=== PATIENT | female | born 1960 | race Caucasian/White ===

== ENCOUNTER → 2016-08-27 | Outpatient (CLI) | payer OTHER | LOC: FIMAGING 11:37 | PROVIDERS: ATTEND Internal Medicine Hematology & Oncology | DX: Z12.39 Encounter for other screening for malignant neoplasm of breast (principal); N64.4 Mastodynia; Z85.3 Personal history of malignant neoplasm of breast | CPT/HCPCS: G0204; G0279 ==

== ENCOUNTER → 2017-02-01 | Outpatient (CLI) | payer OTHER | LOC: FIMAGING 12:55 | PROVIDERS: ATTEND Internal Medicine Hematology & Oncology | DX: Z03.89 Encounter for observation for other suspected diseases and conditions ruled out (principal) | CPT/HCPCS: G0206 ==

== ENCOUNTER → 2017-10-24 | Outpatient (CLI) | payer OTHER ==
[~2017-10-24] MED LIST: IOPAMIDOL (ISOVUE-300) 100 ML BTL ONE
== END ==
LOC: FIMAGING 15:20
PROVIDERS: ATTEND Internal Medicine
DX: N20.0 Calculus of kidney (principal); Z85.3 Personal history of malignant neoplasm of breast
CPT/HCPCS: Q9967

== ENCOUNTER → 2017-12-05 | Outpatient (CLI) | payer OTHER | LOC: FIMAGING 10:20 | PROVIDERS: ATTEND Internal Medicine Hematology & Oncology | DX: Z12.31 Encounter for screening mammogram for malignant neoplasm of breast (principal); Z85.3 Personal history of malignant neoplasm of breast; Z80.3 Family history of malignant neoplasm of breast ==

== ENCOUNTER → 2017-12-06 | Outpatient (CLI) | payer OTHER ==
[~2017-12-06] MED LIST changes: -IOPAMIDOL (ISOVUE-300) 100 ML BTL ONE; +IOPAMIDOL (ISOVUE-300) 150 ML BTL ONE
== END ==
LOC: FIMAGING 10:17
PROVIDERS: ATTEND Physician Assistant Medical
DX: N20.0 Calculus of kidney (principal)
CPT/HCPCS: Q9967

== ENCOUNTER → 2017-12-24 | Outpatient (CLI) | payer OTHER | LOC: FIMAGING 10:39 | PROVIDERS: ATTEND Specialist | DX: N20.0 Calculus of kidney (principal) ==

== ENCOUNTER → 2017-12-25 | Outpatient (CLI) | payer OTHER | LOC: FIMAGING 10:47 | PROVIDERS: ATTEND Internal Medicine Hematology & Oncology | DX: M85.89 Other specified disorders of bone density and structure, multiple sites (principal); N95.8 Other specified menopausal and perimenopausal disorders ==

== ENCOUNTER → 2018-02-03 | Outpatient (CLI) | payer OTHER | LOC: FIMAGING 09:21 | PROVIDERS: ATTEND Specialist | DX: N20.0 Calculus of kidney (principal) ==

== ENCOUNTER → 2018-06-09 | Outpatient (CLI) | payer OTHER | LOC: FIMAGING 09:52 | PROVIDERS: ATTEND Orthopaedic Surgery | DX: Z01.818 Encounter for other preprocedural examination (principal); M17.11 Unilateral primary osteoarthritis, right knee ==

== ENCOUNTER 2018-06-18 08:56 | Observation (INO) | payer OTHER ==
--- NOTE | 2018-06-18 06:42 | PDHPUP ---
History & Physical Update H&P update statement: This history and physical update is based on an assessment of the patient which was completed after admission or registration (within 24 hours), but prior to the surgery/procedure. H&P update: H&P reviewed & patient examined, no change in patient's condition since H&P completed
[~2018-06-18 08:56] MED LIST changes: -IOPAMIDOL (ISOVUE-300) 150 ML BTL ONE; +ROPIVACAINE 0.2% 80 MG, EPINEPHrine 0.2 MG, KETOROLAC TROMETHAMINE 30 MG in SYRINGE 0 ML IU ONE; +TRANEXAMIC ACID 3,000 MG in NS (SYRINGE) 50 ML IRR ONE; +TRANEXAMIC ACID 3,000 MG/50 ML BAG IRR ONE; +VANCOMYCIN 1 GM VIAL ONE
[2018-06-18] MEDS ORDERED: FAMOTIDINE 20 MG TAB PO ONE (09:03)
[2018-06-18] MEDS ORDERED: ACETAMINOPHEN 325 MG TAB PO ONE (09:03)
[2018-06-18] MEDS ORDERED: DEXAMETHASONE 4 MG/ML VIAL IVP ONE (09:03)
[2018-06-18] MEDS ORDERED: ceFAZolin 2 GM/DEXTROSE 100 ML IV ONE (09:03)
[2018-06-18] MEDS ORDERED: LR 1,000 ML IV ONE (09:05)
[2018-06-18] MEDS ORDERED: PROPOFOL/EMULSION 500 MG/50 ML BOTTLE IV ONE (09:59)
[2018-06-18] MEDS ORDERED: LIDOCAINE 2% 5 ML SDV ONE (10:01)
[2018-06-18] MEDS ORDERED: BUPIVACAINE/DEXTROSE 7.5MG/ML 2 ML SPINAL AMP SP ONE (10:53)
[2018-06-18] MEDS ORDERED: MIDAZOLAM 2 MG/2 ML VIAL IVP ONE (10:54)
[2018-06-18] MEDS ORDERED: MIDAZOLAM 2 MG/2 ML VIAL ONE (11:01)
--- NOTE | 2018-06-18 11:03 | PDANEPAE ---
ANE History of Present Illness right knee OA ANE Past Medical History - Cardiovascular History Hx Hypertension: No Hx Arrhythmias: Yes Hx Chest Pain: No Hx Coronary Artery / Peripheral Vascular Disease: No Hx CHF / Valvular Disease: No Hx Palpitations: No Cardiovascular History Comment: SVT-last episode 2009. Cardizem until 02/17. No problems since then. - Pulmonary History Hx COPD: No Hx Asthma/Reactive Airway Disease: No Hx Recent Upper Respiratory Infection: Yes Hx Oxygen in Use at Home: No Hx Sleep Apnea: No Sleep Apnea Screening Result - Last Documented: Positive Pulmonary History Comment: RECENT URI RESOLVING NO MEDICATIONS REQUIRED - Neurologic History Hx Cerebrovascular Accident: No Hx Seizures: No Hx Dementia: No Neurologic History Comment: carpal tunnel both hands-numbness - Endocrine History Hx Diabetes: No Obesity: yes, moderate Endocrine History Comment: none - Renal History Hx Renal Disorders: Yes Renal History Comment: LITHOTRIPSY 12/2017 - Liver History Hx Hepatic Disorders: No - Neurological & Psychiatric Hx Hx Neurological and Psychiatric Disorders: No Neurological / Psychiatric History Comment: Wellbutrin for menopause - Cancer History Hx Cancer: Yes Cancer History Comment: R breast - Congenital Disorder History Hx Congenital Disorders: No - GI History Hx Gastrointestinal Disorders: Yes Gastrointestinal History Comment: hiatal hernia-occ heartburn - Other Health History Other Health History: OSTEOARTHRITIS. skin rash adhesive tape. bruising easily - Chronic Pain History Chronic Pain: Yes (RT KNEE) - Surgical History Prior Surgeries: LITHOTRIPSY 12/30/17. SINUS LIFT/BONE GRAFT PRIOR TO DENTAL IMPLANT. LACY CARPAL TUNNEL 2014. RT BREAST LUMPECTOMY ANE Review of Systems Review of Systems: - Exercise capacity METS (RN): 4 METS ANE Patient History - Allergies Allergies/Adverse Reactions: lanolin Allergy (Intermediate, Verified 10/27/13 08:38) Rash adhesive Allergy (Verified 10/08/13 11:18) amoxicillin [Amoxicillin] Allergy (Verified 06/03/18 11:40) Hives/Joint Pain Sulfa (Sulfonamide Antibiotics) Allergy (Verified 06/03/18 11:40) Hives - Home Medications Home medications: home medication list seen and reviewed Home Medications: Aspirin [Aspirin 81mg (*)] 81 mg PO DAILY 06/03/18 [Last Taken 1 Week Ago ~06/11] Cetirizine [ZyrTEC 10 mg (*)] 10 mg PO DAILY 06/03/18 [Last Taken 06/18/18 07:00 ] Exemestane [Aromasin 25 MG (RX)] 25 mg PO DAILY8 06/03/18 [Last Taken 06/16/18] Fluticasone Nasal [Flonase Nasal [place] (RX)] 1 sprays NASAL DAILY 06/03/18 [ Last Taken 06/18/18 07:30] Herbals/Supplements -Info Only 1 ea PO DAILY 06/03/18 [Last Taken 1 Week Ago ~] Ibuprofen [Motrin (*)] 400 - 600 mg PO BID PRN 06/03/18 [Last Taken 1 Week Ago ~ 06/11/18] Tetrahydrozoline 0.05% [Visine (*)] 1 drop EACHEYE DAILY PRN 06/03/18 [Last Taken 06/18/18 07:00] - NPO status NPO Since - Liquids (Date): 06/18/18 NPO Since - Liquids (Time): 06:30 NPO Since - Solids (Date): 06/17/18 NPO Since - Solids (Time): 20:00 - Anes Hx Anes Hx: no prior problems - Smoking Hx Smoking Status: Never smoked - Family Anes Hx Family Hx Anesthesia Complications: no ANE Labs/Vital Signs - Vital Signs Blood Pressure: 123/77 Heart Rate: 77 Respiratory Rate: 18 O2 Sat (%): 94 Height: 162.56 cm Weight: 86.183 kg ANE Physical Exam - Airway Neck exam: FROM Mallampati Score: Class 2 Mouth exam: poor dentition - Pulmonary Pulmonary: no respiratory distress - Cardiovascular Cardiovascular: regular rate and rhythym - ASA Status ASA Status: II ANE Anesthesia Plan Anesthesia Plan: spinal Regional Anesthesia: single shot NB, adductor canal FNB
[2018-06-18] MEDS ORDERED: oxyCODONE IR 5 MG TAB PO PRN (11:33)
[2018-06-18] MEDS ORDERED: LR 500 ML IV PRN (11:33)
[2018-06-18] MEDS ORDERED: HYDROmorphONE/DILAUDID 2 MG/ML INJ IVP PRN (11:33)
[2018-06-18] MEDS ORDERED: NALOXONE HCL 0.4 MG/ML INJ IVP PRN (11:33)
[2018-06-18] MEDS ORDERED: HYDROCODONE/APAP 5/325 TAB PO PRN (11:33)
[2018-06-18] MEDS ORDERED: fentaNYL 100 MCG/2 ML INJ IVP PRN (11:33)
[2018-06-18] MEDS ORDERED: ONDANSETRON 4 MG/2 ML VIAL IVP PRN ×2 (11:33→12:24)
[2018-06-18] MEDS ORDERED: ALBUTEROL 3 ML DEYVIAL IH PRN (11:33)
[2018-06-18] MEDS ORDERED: ACETAMINOPHEN 500 MG TAB PO PRN (11:33)
--- NOTE | 2018-06-18 11:33 | POSTANESTH ---
Post Anesthetic Evaluation Cardiovascular Status: Normal, Stable Respiratory Status: Normal, Stable Level of Consciousness/Mental Status: Can Participate in Eval, Mildly Sleepy, Arousable Pain Control: Adequate, Prn Tx Ordered Nausea/Vomiting Control: Adequate, Prn Tx Ordered Complications Possibly Related to Anesthesia: None Noted
[2018-06-18] MEDS ORDERED: ROPIVACAINE HCL 150 MG/30 ML INJ ONE (11:45)
[2018-06-18] MEDS ORDERED: PROPOFOL 200 MG/20 ML VIAL ONE (11:52)
--- NOTE | 2018-06-18 12:22 | POSTOPPROG ---
Post Op Note Date of Operation: 06/18/18 Surgeon: Urszula Skinner Hvac Field Service Technician: Valerie Skinner PA-C Anesthesiologist: Dr. Moreno Anesthesia: Spinal, Other (Specify) (Adductor canal block) Pre-op Diagnosis: right knee OA Post-op Diagnosis: same Indication: right medial knee pain Procedure: Right medial partial knee arthroplasty Findings: severe medial knee OA Inf/Abcess present in the surg proc area at time of surgery?: No EBL: 50-100
[2018-06-18] MEDS ORDERED: DIPHENOXYLATE/ATROPINE LOMOTIL 1 TAB PO PRN (12:24)
[2018-06-18] MEDS ORDERED: PROMETHAZINE HCL 25 MG/ML INJ IVP PRN (12:24)
[2018-06-18] MEDS ORDERED: BISACODYL 10 MG SUPP PR PRN (12:24)
[2018-06-18] MEDS ORDERED: PROMETHAZINE HCL 25 MG SUPPR PR PRN (12:24)
[2018-06-18] MEDS ORDERED: ONDANSETRON DISINTEGRATING 4 MG TAB PO PRN (12:24)
[2018-06-18] MEDS ORDERED: MAGNESIUM HYDROXIDE 30 ML UDCUP PO PRN (12:24)
[2018-06-18] MEDS ORDERED: LACTULOSE 20 GM/30 ML UDCUP PO PRN (12:24)
[2018-06-18] MEDS ORDERED: diphenhydrAMINE 25 MG CAP PO PRN (12:24)
[2018-06-18] MEDS ORDERED: POLYETHYLENE GLYCOL 3350 17 GM PKT PO PRN (12:24)
[2018-06-18] MEDS ORDERED: METOCLOPRAMIDE 10 MG/2 ML VIAL IVP PRN (12:24)
[2018-06-18] MEDS ORDERED: CYCLOBENZAPRINE 10 MG TAB PO PRN (12:24)
[2018-06-18] MEDS ORDERED: LR 1,000 ML IV SCH (12:30)
[2018-06-18] MEDS ORDERED: TETRAHYDROZOLINE 0.05% 15 ML OPHT.BTL EACHEYE PRN ×2 (13:00)
[2018-06-18] MEDS: ACETAMINOPHEN 325 MG TAB PO SCH (18:28)
[2018-06-18] MEDS: ceFAZolin 2 GM/DEXTROSE 100 ML IV SCH (18:29)
[2018-06-18] MEDS: FAMOTIDINE 20 MG TAB PO SCH (21:53)
[2018-06-18] MEDS: ASPIRIN 81 MG CHEWABLE TAB PO SCH (21:53)
[2018-06-18] MEDS: SENNOSIDES/DOCUSATE SODIUM TAB PO SCH (21:54)
[2018-06-18] MEDS: oxyCODONE IR 5 MG TAB PO PRN (21:57)
[2018-06-18] MEDS: TEMAZEPAM 15 MG CAP PO PRN (21:57)
[2018-06-19] MEDS: ACETAMINOPHEN 325 MG TAB PO SCH ×2 (00:40→06:21)
[2018-06-19] MEDS: ceFAZolin 2 GM/DEXTROSE 100 ML IV SCH (02:21)
[2018-06-19] MEDS: TEMAZEPAM 15 MG CAP PO PRN (02:44)
[2018-06-19] MEDS ORDERED: EXEMESTANE 25 MG TAB PO SCH (08:00)
[2018-06-19] MEDS: oxyCODONE IR 5 MG TAB PO PRN (08:09)
[2018-06-19] MEDS: FAMOTIDINE 20 MG TAB PO SCH (08:11)
[2018-06-19] MEDS: ASPIRIN 81 MG CHEWABLE TAB PO SCH (08:12)
[2018-06-19] MEDS: SENNOSIDES/DOCUSATE SODIUM TAB PO SCH (08:12)
--- NOTE | 2018-06-19 08:46 | SOAPPROG ---
SOAP Progress Note Assessment/Plan: Assessment: Patient is doing well POD 1 s/p R medial PKA Pain management: pain is well controlled on oral pain meds. VTE ppx: recommend aspirin 81 mg BID for 4 weeks, cont OSMANI and SCDs Anemia: level is expected initially postop. Asymptomatic. Continue to monitor D/c planning: Patient has done better than anticipated and would like to be discharged to home today. Patient must be released from PT before discharge to home. postop urinary retention: straight cath'd yesterday, resolved today. Plan: 06/19/18 08:44 Subjective: Arcelia is doing well today, denies SOB, chest pain and n/v Objective: Vital Signs Temp Pulse Resp BP Pulse Ox 36.4 C 73 16 128/76 H 100 06/19/18 07:34 06/19/18 07:34 06/19/18 07:34 06/19/18 07:34 06/19/18 07:34 Laboratory Results 06/19/18 05:00 06/18/18 06/19/18 06/20/18 05:59 05:59 05:59 Intake Total 2755 Output Total 2480 Balance 275 RLE: incision dressing is clean and dry, NVI, +pf/df ICD10 Worksheet Patient Problems: Problems Problem Status Onset Primary localized osteoarthritis of right knee Acute
[2018-06-19] MEDS ORDERED: FLUTICASONE NASAL 120 SPRAYS/16 GM MDI EACHNARE SCH (09:00)
--- NOTE | 2018-06-19 09:36 | GDS ---
ADMISSION DIAGNOSIS: Right knee osteoarthritis. DISCHARGE DIAGNOSIS: Right knee osteoarthritis. PROCEDURE: Right partial knee arthroplasty, medial compartment, robotic-assisted. VTE PROPHYLAXIS: Recommend aspirin 81 mg twice daily for 4 weeks. BRIEF DESCRIPTION OF HOSPITAL STAY: Patient was admitted for an elective joint arthroplasty. The pa dion tolerated the procedure well and has passed physical therapy. The patient was given appropriat e antibiotic prophylaxis and venous thromboembolism prophylaxis. The patient's pain was well control led on oral pain medication, patient was holding down food, and had urinated. Decision was made to d ischarge the patient. The patient was given post-operative prescriptions pre-operatively. PLAN: Follow up as scheduled in Dr. Skinner's office, July 14 at 11 a.m. /[id number]/MODL
--- NOTE | 2018-06-19 11:39 | WOCRNPDOC ---
DIANA Advanced Assessment Note - Skin Integrity Problem, Advanced Assess Left Posterior Lower Leg Pressure Injury Dressing Type: Open to Air Exudate Amount: None Site Measurement - Head-to-Toe Length X Width X Depth (cm): [id number] Pressure Injury Stage: Stage 2, Jewelry Jobber Related Pressure Injury (TEDS ) Pressure Injury Present on Admit: No Skin Integrity Problem Comment: Patient has an intact non blanching area of erythema that is swollen and will become a serous filled blister in the next 24 hours. Education with patient about need to keep wearing TEDS but to be cautious about where they cut into her skin and folds/creases. Patient instructed to cover wound for 1-2 weeks until healed under TEDS with alleyvn gentle dressing 5x2 to protect the area. May use arnica for moisture/healing as she likes. Change dressing every 3-4 days. Right Lower Leg Pressure Injury Dressing Type: Open to Air Site Measurement - Head-to-Toe Length X Width X Depth (cm): 0.4x11x0 and 0.4x4x0 Pressure Injury Stage: Stage 1 (x2), Jewelry Jobber Related Pressure Injury ( TEDS) Pressure Injury Present on Admit: No Skin Integrity Problem Comment: Two horizontal linear pressure injuries from OSMANI hose on proximal lower leg. Mekhi MILES made aware.
--- NOTE | 2018-06-19 13:13 | GOP ---
DATE OF OPERATION: 06/18/2018 SURGEON: Renny Skinner MD INSURANCE CUSTOMER SERVICE SPECIALIST: Valerie Skinner, JORGE LUIS. ANESTHESIA: Spinal. PREOPERATIVE DIAGNOSIS: Right knee osteoarthritis. POSTOPERATIVE DIAGNOSIS: Right knee osteoarthritis. PROCEDURE PERFORMED: Right medial compartment partial knee replacement using navigation, robotic ass ist. FINDINGS: ESTIMATED BLOOD LOSS: 30 cc. INDICATIONS: This is a 58 year old female with progressive pain of the right knee unresponsive to co nservative care. Risks and benefits of surgical intervention were explained in detail. DESCRIPTION OF PROCEDURE: The patient was brought to the operating room and placed on the table in s upine position. Spinal anesthesia was induced without difficulty. A pneumatic tourniquet was applie d about the right proximal thigh and the leg was prepped and draped in sterile fashion. Attention wa s turned first to the distal aspect of the right femur. At 3 cm proximal to the lateral rise of the femur, 2 percutaneous half pins were placed for fixation of the femoral array. In a similar fashion, 2 pins were placed anterolateral on the tibia for fixation of the tibial array. External land abiola ng and registration of the hip center were performed without difficulty. After exsanguination by elevation, the tourniquet was inflated to 250 mmHg. Incision was made from the tibial tuberosity to the superior pole of the patella. Dissection was car ried out through the subcutaneous tissue to the deep fascia using Bovie electrocautery for hemostasis . Medial parapatellar arthrotomy was carried out to the superior pole of the patella. The medial co llateral ligament was elevated and the infrapatellar fat pad was resected. Internal femoral and tibi al registration was carried out without difficulty and the femoral and tibial checkpoints were placed and verified for accuracy. Attention was turned to the femur. The foot print for the size 4 femoral component was cut with the 6 mm bur using the Mysterio robotic system and verified for accuracy against the CT based plan. The hole was cut for the femoral post. In a similar fashion, the 6 mm bur was used to cut the foot print for t he size 3 tibial component using the KELVIN system and verified for accuracy against the CT based plan. Attention was turned to the posterior aspect of the knee and remnants of the medial meniscus were exc ised. The posterior capsule was injected with ropivacaine, epinephrine and Toradol. Trial reduction was carried out and there was excellent range of motion, alignment and stability using the size 4 fe moral component and the size 3 tibial component, a 3 x 8 mm polyethylene. All trials were then removed. The joint was thoroughly irrigated and carefully dried. One package o f cement and 1 gram of vancomycin were mixed in the vacuum mixer and placed on the fixation surfaces of all components. The components were implanted and all excess cement was thoroughly removed. Impla nt placement was verified against the CT view plan and found to be excellent. The tourniquet was deflated and all bleeders were coagulated. The wound was thoroughly irrigated and closed using interrupted sutures of 2-0 Vicryl for the joint capsule. The subcu was closed with 3-0 Vicryl and the skin with 4-0 Monocryl. Dermabond and Steri-Strips were applied, followed by a compr essive dressing. The patient was then moved from the operating room to the recovery room in good con dition, having tolerated the procedure well. CASE CLASSIFICATION: Clean. /[id number]/MODL
[2018-06-19 16:18] VITALS: BP 141/85
== END 2018-06-19 11:56 | disposition home or self-care (01) ==
LOC: INTOOBSV 08:56 → F3N 08:56
PROVIDERS: ADMIT Orthopaedic Surgery; ATTEND Orthopaedic Surgery
DX: M17.11 Unilateral primary osteoarthritis, right knee (principal); Z86.718 Personal history of other venous thrombosis and embolism; G56.03 Carpal tunnel syndrome, bilateral upper limbs
CPT/HCPCS: 97116-GP; 97161-GP; 97530-GP; C1713; G0378; J0171; J0690; J1100; J1885; J2250; J2704; J2795; J3370

== ENCOUNTER → 2018-12-08 | Outpatient (CLI) | payer OTHER | LOC: FIMAGING 12:50 ==